=== PATIENT | female | born 1980 | race Asian ===

== ENCOUNTER 2016-10-25 00:15 | Inpatient (IN) | payer SELFPAY ==
[~2016-10-25] VITALS: Ht 165.1 cm; Wt 64.4 kg
[2016-10-25] MEDS ORDERED: LACTATED RINGERS 1,000 ML IV SCH (00:36)
[2016-10-25] MEDS ORDERED: CITRIC ACID/SODIUM CITRATE 30 ML UDC PO SCH ×2 (00:40→17:55)
[2016-10-25 01:25] VITALS: BP 98/55
[2016-10-25] MEDS ORDERED: NATURAL IRON65 MG PO (02:36)
[2016-10-25] MEDS ORDERED: CITRIC ACID/SODIUM CITRATE 30 ML UDC ONE (17:22)
[2016-10-25] MEDS ORDERED: ceFAZolin 1,000 MG VIAL ONE (17:30)
[2016-10-25] MEDS ORDERED: TRIAMCINOLONE 40 MG/ML 5ML VIAL ONE (17:37)
[2016-10-25] MEDS ORDERED: OXYTOCIN 10 UNITS/ML VIAL ONE (17:38)
[2016-10-25] MEDS ORDERED: ePHEDrine 50 MG/ML VIAL IV ONE (17:57)
[2016-10-25] MEDS ORDERED: OXYTOCIN 10 UNITS/ML VIAL IM ONE (17:57)
[2016-10-25] MEDS ORDERED: fentaNYL 0.05 MG/ML VIAL ONE (18:04)
[2016-10-25] MEDS ORDERED: MORPHINE PRES FREE 10 MG/10 ML AMP IV ONE (18:04)
[2016-10-25] MEDS ORDERED: TEMAZEPAM 15 MG CAP PO PRN (18:10)
[2016-10-25] MEDS ORDERED: oxyCODONE/APAP 5/325 MG 1 TAB TAB PO PRN (18:10)
[2016-10-25] MEDS ORDERED: IBUPROFEN 800 MG TAB PO PRN (18:10)
[2016-10-25] MEDS ORDERED: SIMETHICONE 80 MG TAB.CHEW PO PRN (18:10)
[2016-10-25] MEDS ORDERED: MEASLES, MUMPS, AND RUBELLA 1 VIAL SQVAC PRN (18:10)
[2016-10-25] MEDS ORDERED: TRIMETHOBENZAMIDE 200 MG/2 ML SYR IM PRN (18:10)
[2016-10-25] MEDS ORDERED: METHYLERGONOVINE 0.2 MG/ML AMP IM PRN (18:10)
[2016-10-25] MEDS ORDERED: NALBUPHINE 10 MG/ML AMP IVP PRN (18:20)
[2016-10-25] MEDS ORDERED: KETOROLAC 60 MG/2 ML VIAL IM PRN (18:20)
[2016-10-25] MEDS ORDERED: diphenhydrAMINE 50 MG/ML VIAL IVP PRN (18:20)
[2016-10-25] MEDS ORDERED: ONDANSETRON 4 MG/2 ML VIAL IVP PRN ×2 (18:20)
[2016-10-25] MEDS ORDERED: NALOXONE 0.4 MG/ML VIAL IVP PRN ×3 (18:20)
[2016-10-25] MEDS ORDERED: diphenhydrAMINE 50 MG/ML VIAL ONE (18:55)
[2016-10-25] MEDS ORDERED: ONDANSETRON 4 MG/2 ML VIAL ONE (18:56)
[2016-10-25] MEDS ORDERED: OXYTOCIN 20 UNITS/LR PREMIX 1,000 ML IV ONE (18:56)
[2016-10-25] MEDS: DOCUSATE SOD/SENNA 50/8.6 MG 1 TAB PO SCH (21:00)
[2016-10-26] MEDS: OXYTOCIN 20 UNITS/LR PREMIX 1,000 ML IV SCH ×2 (00:40→08:42)
--- NOTE | 2016-10-26 09:23 | NUR ---
PATIENT HAS BEEN SCREENED AND CATEGORIZED LOW NUTRITION RISK. PATIENT WILL BE SEEN WITHIN 7 DAYS OF ADMISSION. 11/01/[address]
[2016-10-26] MEDS: HYDROcodone/APAP 5/325 MG 1 TAB TAB PO PRN (18:51)
[2016-10-26] MEDS ORDERED: INFLUENZA VIRUS VACCINE QUAD 0.5 ML SYR IMVAC SCH (20:55)
[2016-10-26] MEDS: DOCUSATE SOD/SENNA 50/8.6 MG 1 TAB PO SCH (21:01)
[2016-10-27] MEDS: HYDROcodone/APAP 5/325 MG 1 TAB TAB PO PRN (07:04)
[2016-10-27] MEDS: DOCUSATE SOD/SENNA 50/8.6 MG 1 TAB PO SCH (20:57)
[2016-10-28] MEDS: HYDROcodone/APAP 5/325 MG 1 TAB TAB PO PRN (03:12)
== END 2016-10-28 13:35 | disposition home or self-care (01) | DRG 766 ==
LOC: MFCC 00:15
PROVIDERS: ADMIT Obstetrics & Gynecology; ATTEND Obstetrics & Gynecology
PROC: 3E0234Z Introduction of Serum, Toxoid and Vaccine into Muscle, Percutaneous Approach (ICD-10-PCS; 2016-10-25)
PROC: 10D00Z1 Extraction of Products of Conception, Low, Open Approach (ICD-10-PCS; principal; 2016-10-25 18:00)
DX: O34.211 Maternal care for low transverse scar from previous cesarean delivery (principal); Z37.0 Single live birth; Z3A.39 39 weeks gestation of pregnancy; Z23 Encounter for immunization